=== PATIENT | female | born 1970 | race Caucasian/White ===

== ENCOUNTER 2018-01-14 15:40 | Emergency (ER) | payer OTHER ==
[2018-01-14 18:15] LABS: URINE BLOOD (Dip) POC Trace-intact (NEGATIVE); URINE GLUCOSE (Dip) POC Negative (NEGATIVE); URINE KETONES (Dip) POC Negative (NEGATIVE); URINE LEUKOCYTE EST (Dip) POC Negative (NEGATIVE); URINE NITRITE (Dip) POC Negative (NEGATIVE); URINE TOTAL PROTEIN POC Negative (NEGATIVE)
== END 2018-01-14 21:27 | disposition home or self-care (01) ==
LOC: FTE 21:27
DX: M54.5 Low back pain (principal)
CPT/HCPCS: 72100; 81003; 81025; 99283-25